=== PATIENT | male | born 1965 | race Caucasian/White ===

== ENCOUNTER 2020-01-17 13:27 | Observation (INO) | payer OTHER ==
[~2020-01-17] VITALS: Ht 182.9 cm; Wt 120.2 kg
[2020-01-17 13:27] VITALS: BP 128/83
[~2020-01-17 13:27] MED LIST: ASPIR 8181 M1 PO; FLEXERIL PO; FLONASE 0.05%50 MCG NASAL; FLUOCINOLONE AC15 G1 TP; PHENERGAN 25 MG25 M1 PO; ZOCOR20 MG PO
[2020-01-17] MEDS ORDERED: XANAX 0.25 MG0.25 MG PO (13:47)
[2020-01-17] MEDS ORDERED: SERTRALINE HCL100 MG PO (13:47)
[2020-01-17] MEDS ORDERED: TRAZODONE HCL100 MG PO (13:47)
[2020-01-17 15:15] LABS: ABSOLUTE BASOPHILS 0.1 thou/uL (0.0-0.2); ABSOLUTE EOSINOPHILS 0.2 thou/uL (0.0-0.7); ABSOLUTE LYMPHOCYTES 2.2 thou/uL (0.8-5.3); ABSOLUTE MONOCYTES 0.8 thou/uL (0.0-1.2); BASOPHILS 0.6 %; EOSINOPHILS 1.5 %; HEMATOCRIT 39.2 % (42.0-52.0); HEMOGLOBIN 13.5 gm/dL (14.0-18.0); LYMPHOCYTES 21.3 %; MCH 27.5 pg (26.0-34.0); MCHC 34.5 g/dL (28.0-37.0); MCV 79.8 fL (80.0-100.0); MPV 7.7 fl. (7.2-11.1); NUCLEATED RBCS 0 /100WBC; PLATELET COUNT* 323 thou/uL (150-400); POLYS 68.6 %; RBC 4.92 mil/uL (4.50-6.00); RDW-CV 14.2 % (10.5-14.5); WBC 10.2 thou/uL (4.0-11.0)
[2020-01-17 15:31] LABS: CREATININE 1.2 mg/dL (0.6-1.3)
[2020-01-17 15:32] LABS: INFLUENZA A ANTIGEN Negative (Negative); INFLUENZA B ANTIGEN Negative (Negative)
[2020-01-17 15:32] LABS: ALBUMIN 3.6 g/dL (3.4-5.0); CALCIUM 9.1 mg/dL (8.5-10.1); TOTAL BILIRUBIN 0.2 mg/dL (<0.1-1.0); TOTAL PROTEIN 6.8 g/dL (6.4-8.2)
[2020-01-17 15:40] VITALS: BP 109/53
--- NOTE | 2020-01-17 16:00 | NUR ---
54 Y/0 MALE ADMITTED FROM ER FOR HYPOXIA AND URI. PATIENT STATES THAT HE HAS HAD "COLD SYMPTOMS" SINCE TUESDAY. STATES THAT LAST NOC, HIS TOOK HIM FOR A WALK AROUND THE HOUSE AND HIS O2 SAT DROPPED TO 88%. REPORTED REC'D FROM RESEARCH NURSE. PATIENT ORIENTED TO POC, RM AND CALL LIGHT. PATIENT STATES VERBALLY UNDERSTANDING. NO ACUTE DISTRESS NOTED. ~TJRN
--- NOTE | 2020-01-17 16:31 | EKG ---
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
[2020-01-17 19:37] VITALS: BP 113/69
[2020-01-18 00:32] VITALS: BP 97/62
[2020-01-18 04:57] LABS: HEMATOCRIT 38.9 % (42.0-52.0); HEMOGLOBIN 13.2 gm/dL (14.0-18.0); MCH 27.5 pg (26.0-34.0); MCV 80.8 fL (80.0-100.0); MPV 7.7 fl. (7.2-11.1); RBC 4.81 mil/uL (4.50-6.00); RDW-CV 14.2 % (10.5-14.5); WBC 10.7 thou/uL (4.0-11.0)
[2020-01-18 05:09] LABS: CALCIUM 8.6 mg/dL (8.5-10.1); CREATININE 1.3 mg/dL (0.6-1.3); PHOSPHORUS* 3.6 mg/dL (2.5-4.9); POTASSIUM 4.4 mmol/L (3.5-5.1)
--- NOTE | 2020-01-18 05:20 | NUR ---
PATIENT HAS REMAINED ALERT AND ORIENTED X 4 THROUGHOUT THE SHIFT AND RESTING AT INTERVALS ON HOURLY ROUNDS. VITAL SIGNS STABLE. AFEBRILE. DID PROVIDE O2 AT 1.5 L/MIN IN PLACE OF HOME CPAP OVERNIGHT. UP INDEPENDENTLY IN THE ROOM. CO-VID RESULTS PENDING. HOPES TO GO HOME TODAY. CONTINUE TO MONITOR.
[2020-01-18 10:30] VITALS: BP 125/74
--- NOTE | 2020-01-18 13:16 | NUR ---
Pt lives at home with his who is a HH nurse. No dc needs anticipated. SW to continue to follow to assist with safe dc planning if needs arise.
[2020-01-18 15:33] VITALS: BP 130/82
--- NOTE | 2020-01-18 19:00 | NUR ---
PATIENT PLEASANT AND COOPERATIVE W/ ASSESS AND CARES. PATIENT DENIES PAIN, STATES FEELING BETTER SINCE YESTERDAY. PATIENT INDEP IN RM. DENIES NURSING NEEDS. WATCHING TV AT THIS TIME. CALL LIGHT IN REACH. ISO MAINTAINED. ~TJRN
[2020-01-18 20:40] VITALS: BP 109/68
--- NOTE | 2020-01-19 04:32 | NUR ---
ASSUMED CARE OF PT 01/18/20 AT APPROX 1930. PT A&OX4, ON ROOM AIR - 2L NC WHILE SLEEPING, VSS. NO COMPLAINTS THIS SHIFT. WILL CONTINUE TO MONITOR.
[2020-01-19 05:39] LABS: HEMATOCRIT 41.7 % (42.0-52.0); HEMOGLOBIN 14.2 gm/dL (14.0-18.0); MCH 27.4 pg (26.0-34.0); MCV 80.7 fL (80.0-100.0); MPV 7.4 fl. (7.2-11.1); RBC 5.17 mil/uL (4.50-6.00); WBC 9.7 thou/uL (4.0-11.0)
[2020-01-19 05:55] LABS: ALBUMIN 3.3 g/dL (3.4-5.0); CALCIUM 8.5 mg/dL (8.5-10.1); CREATININE 1.1 mg/dL (0.6-1.3); MAGNESIUM 1.9 mg/dL (1.8-2.4); PHOSPHORUS* 3.7 mg/dL (2.5-4.9); POTASSIUM 4.4 mmol/L (3.5-5.1)
[2020-01-19 08:30] VITALS: BP 100/65
[2020-01-19 14:36] VITALS: BP 100/65
[2020-01-19 14:50] VITALS: BP 100/65
--- NOTE | 2020-01-19 15:55 | NUR ---
DISCHARGED HOME WITH DISCHARGE INSTRUCTIONS. VERBALIZED UNDERSTANDING. DENIES PAIN. RESPIRATIONS REMAIN EVEN AND UNLABROED ON ROOM AIR.
== END 2020-01-19 15:00 | disposition home or self-care (01) ==
LOC: M.ERS 13:27 → M.ORTHSURG 14:19 → M.TBA-ER 14:19 → M.ORTHSURG 14:19
PROVIDERS: Physician Assistant; ADMIT Family Medicine
DX: J96.01 Acute respiratory failure with hypoxia (principal); M79.10 Myalgia, unspecified site; R50.9 Fever, unspecified; E78.5 Hyperlipidemia, unspecified; L40.9 Psoriasis, unspecified; G47.33 Obstructive sleep apnea (adult) (pediatric); F41.9 Anxiety disorder, unspecified; F32.9 Major depressive disorder, single episode, unspecified; Z98.890 Other specified postprocedural states; B34.9 Viral infection, unspecified; Z20.828 Contact with and (suspected) exposure to other viral communicable diseases